=== PATIENT | male | born 1985 | race Native Hawaiian/Other Pacific Islander ===

== ENCOUNTER 2021-11-14 04:37 | Emergency (ER) | payer OTHER ==
[~2021-11-14] VITALS: Ht 177.8 cm; Wt 77.1 kg
[2021-11-14 05:25] LABS: POTASSIUM 3.8 mmol/L (3.6-5.2)
[2021-11-14 05:31] LABS: PLATELET COUNT 197 K/uL (142-355)
[2021-11-14 07:05] VITALS: BP 110/68; TEMP 97.9
== END 2021-11-14 07:05 | disposition home or self-care (01) ==
LOC: ED 04:37
PROVIDERS: Hospitalist
DX: N13.2 Hydronephrosis with renal and ureteral calculous obstruction (principal); R11.2 Nausea with vomiting, unspecified
CPT/HCPCS: 36415; 80053; 80320; 81000; 83690; 85027; 96360; 96365; 96375; 99284; J1170; J1885; J2543; Q9963